=== PATIENT | female | born 1985 | race African-American/Black ===

== ENCOUNTER 2019-10-13 10:08 | Inpatient (IN) | payer OTHER ==
[2019-10-13 10:59] VITALS: BMI 43.1
--- NOTE | 2019-10-13 11:43 | HP ---
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: Alzheimer's, CVA, Dementia, Migraine, Multiple Sclerosis, Peripheral Neuropathy, Parkinson's, Seizure, Syncope, TIA, Vertigo, Other Cardiovascular: No: AFIB, Aneurysm, Aortic Insufficiency, Aortic Stenosis, CAD, CHF, Deep Vein Thrombosis, HTN, Hyperlipdemia, DC, Mitral Insufficiency, Mitral Stenosis, Murmur, Pulmonary Hypertension, Other Pulmonary: No: Asthma, Bronchitis, Cancer, COPD, O2 Dependent, Pneumonia, Previously Intubated, Pulmonary Embolus, Pulmonary Fibrosis, Sleep Apnea, Other Gastrointestinal: No: Ascites, Cancer, Constipation, Crohn's Disease, Diverticulitis, Diverticulosis, Esophageal Varices, Gastritis, GERD, GI Bleed, Hemorrhoids, Hiatal Hernia, Inflamatory Bowel Disease, Irritable Bowel Disease, Pancreatitis, Peptic Ulcer Disease, Ulcerative Colitis, Other Hepatobiliary: No: Cirrhosis, Cholelithiasis, Cholecystitis, Choledocholithi asis, Hepatitis A, Hepatitis B, Hepatitis C, Other Renal/: No: Renal Failure, Renal Inusuff, BPH, Cancer, Hematuria, Hemodialysis, Neurogenic Bladder, Renal Calculi, UTI, Other Reproductive: No: Ectopic , Endometriosis, Fibroids, PID, Polycystic Ovary Syndrome, Postmenopausal, Other ...: 1 ...Para: 0 ...Term: 0 ...: 0 ...Spon : 0 ...Induced : 0 ...Living Children: 0 ...Multiple Gestation: 0 ...EDC by Sono: 10/16/19 Heme/Onc: No: Anemia, B12 Deficiency, Bleeding Disorder, Cancer, Current Chemotherapy, Current Radiation Therapy, Hemochromatosis, Hypercoaguable State, Myeloproliferative Synd, Sickle Cell Disease, Sickle Cell Trait, Thrombocytopenia, Other Infectious Disease: No: AIDS, C-Diff, Herpes Zoster, HIV, MRSA, STD's, Tuberculosis, VREF, Other Psych: No: Addictions, Anxiety, Bipolar, Depression, Panic, Psychosis, Schizophrenia, Other Musculoskeletal: No: Bursitis, Chronic low back pain, Hemiparesis, Hemiplegia, Osteoarthritis, Paraplegia, Other Rheumatology: No: Fibromyalgia, Gout, Lupus, Rheumatoid Arthritis, Sarcoidosis, Vasculitis, Other ENT: No: Allergic Rhinitis, Sinusitis, Other Endocrine: No: [place]'s Disease, [place]'s Disease, Diabetes Insipidus, Diabetes Mellitus, Hyperparathyroidism, Hyperthyroidism, Hypothyroidism, Osteopenia, SIADH, Other Dermatology: No: Basal Cell, Cellulitis, Eczema, Melanoma, Psoriasis, Squamous Cell, Other - Past Surgical History Past Surgical History: No: None, AAA Repair, AICD, Amputation, Appendectomy, Arthrosocopy, AV Fistula/Graft, Bariatric Surgery, Breast Biopsy, Bypass, CABG, Carotid Endarterectomy, Cataract Removal, Cholecystectomy, Colectomy, Colonoscopy, Colostomy, Craniotomy, , Cystectomy, Hernia Repair, Hysterectomy, Ileal Conduit, Ileosotomy, Joint Replacement, Kidney Transplant, Laminectomy, Liver Transplant, Mastectomy, Nephrectomy, Oopherectomy, Orc hiectomy, Permanent Pacemaker, Prostatectomy, Splenectomy, Stent, Thoracotomy, TURP, Tonsillectomy, Tubal Ligation, Upper Endoscopy, Valve Replacement, Vasectomy, Vein Stripping/Ligation Hx Myomectomy: No Hx Transabdominal Cerclage: No - Smoking History Smoking history: Never smoked Have you smoked in the past 12 months: No - Alcohol/Substance Use Hx Alcohol Use: No Home Medications - Allergies Allergies/Adverse Reactions: Allergies Allergy/AdvReac Type Severity Reaction Status Date / Time No Known Allergies Allergy Verified 10/13/19 10:59 - Home Medications Home Medications: Ambulatory Orders Tablet 1 tab PO DAILY 10/13/19 Family Medical History Family History: Unremarkable Review of Systems - Review of Systems Constitutional: reports: No Symptoms Eyes: reports: No Symptoms HENT: reports: No Symptoms Neck: reports: No Symptoms Cardiovascular: reports: No Symptoms Respiratory: reports: No Symptoms Gastrointestinal: reports: No Symptoms Genitourinary: reports: No Symptoms Breasts: reports: No Symptoms Reported Musculoskeletal: reports: No Symptoms Integumentary: reports: No Symptoms Neurological: reports: No Symptoms Endocrine: reports: No Symptoms Hematology/Lymphatic: reports: No Symptoms Psychiatric: reports: No Symptoms Physical Exam - Maternity Vital Signs: Vital Signs Temperature 98.6 F 10/13/19 10:08 Pulse Rate 73 10/13/19 10:08 Respiratory Rate 18 10/13/19 10:08 Blood Pressure 128/79 10/13/19 10:08 O2 Sat by Pulse Oximetry (%) Constitutional: Yes: Well Nourished, No Distress, Calm Eyes: Yes: WNL, Conjunctiva Clear, EOM Intact HENT: Yes: WNL, Atraumatic, Normocephalic Neck: Yes: WNL, Supple, Trachea Midline Cardiovascular: Yes: WNL, Regular Rate and Rhythm Breast(s): Yes: WNL - Abdominal Exam/OB Fundal Height: 42 Number of Fetuses: Single Presentation: Oblique Contractions: No Category: I Accelerations: Uniform Decelerations: None - Vaginal Exam/OB Dilatation (cm): 0 Amniotic Membrane Status: Intact Presentation: Vertex/Position Station: -4 - Physical Exam Musculoskeletal: Yes: WNL Extremities: Yes: WNL Integumentary: Yes: WNL ...Motor Strength: WNL Psychiatric: Yes: WNL Problem List - Problems (1) with 39 completed weeks gestation Code(s): Z3A.39 - 39 WEEKS GESTATION OF (2) Oblique lie Code(s): O32.2XX0 - MATERNAL CARE FOR TRANSVERSE AND OBLIQUE LIE, UNSP (3) Macrosomia affecting management of mother Code(s): O36.60X0 - MATERNAL CARE FOR EXCESS GROWTH, UNSP TRIMESTER, UNSP Assessment/Plan FOR ELECTIVE C/SECTION FULLY DISCUSSED. PT. UNDERSTANDS AND CONSENTS
[2019-10-13] MEDS ORDERED: CITRIC ACID/SODIUM CITRATE 30 ML UNIT-DOSE CUP PO ONE (11:45)
[2019-10-13] MEDS ORDERED: morphine SULFATE/PF 0.5 MG/ML (2cc Syringe - QUVA) ONE (12:27)
[2019-10-13] MEDS ORDERED: IBUPROFEN 600 MG TABLET (FP) PO PRN (13:34)
[2019-10-13] MEDS ORDERED: ACETAMINOPHEN 325 MG TABLET (FP) PO PRN (13:34)
[2019-10-13] MEDS ORDERED: METHYLERGONOVINE MALEATE 0.2 MG/1 ML AMP IM PRN (13:34)
[2019-10-13] MEDS ORDERED: IBUPROFEN 800 MG/8 ML IJ IVPB PRN (13:34)
[2019-10-13] MEDS ORDERED: OXYTOCIN 20 UNITS in 0.9% NS 1000 ML INFUS.BAG IV ONE (13:44)
[2019-10-13] MEDS ORDERED: ELECTROLYTE-148 SOLN 1,000 ML IV SCH (13:45)
[2019-10-13] MEDS ORDERED: ONDANSETRON 4 MG/2 ML VIAL IVPUSH PRN (13:47)
--- NOTE | 2019-10-13 13:51 | OP ---
Operative Note - Note: Operative Date: 10/13/19 Pre-Operative Diagnosis: 39 weeks gestation Operation: Section Post-Operative Diagnosis: Same as Pre-op Surgeon: Ricky Allen Rockboard Lather: Vernon Jaeger Anesthesiologist/BEHAVIORAL GENETICIST: Bernardo Hawk Anesthesia: Spinal Estimated Blood Loss (mls): 650 Operative Report Dictated: Yes
--- NOTE | 2019-10-13 13:52 | SURG ---
Surgery Rn Trauma Note Rn Trauma: Vernon Jaeger PA-C Date of Service: 10/13/19 Diagnosis: 39 weeks gestation, requesting section Procedure: section I was present for the entirety of the operative procedure. For further detail, please refer to operative report. Visit type - Case Type Case Type: Scheduled - New patient This patient is new to me today: Yes Date on this admission: 10/13/19
[2019-10-13] MEDS ORDERED: ACETAMINOPHEN INJECTION 100 ML IVPB ONE (14:12)
[2019-10-13] MEDS: ACETAMINOPHEN 1000 MG/100 ML VIAL (NON FORMULARY) IVPB PRN ×2 (14:15→22:53)
[2019-10-13] MEDS ORDERED: OXYTOCIN 20 UNITS in 0.9% NS 20 UNIT/1,000 ML INFUS.BAG IV ONE (15:41)
[2019-10-13] MEDS: CEFAZOLIN 1 GM/D5W 1 GM/50 ML BAG IVPB SCH (17:22)
[2019-10-14] MEDS: CEFAZOLIN 1 GM/D5W 1 GM/50 ML BAG IVPB SCH ×2 (02:40→09:49)
--- NOTE | 2019-10-14 05:40 | PN ---
Progress Note (short form) - Note Progress Note: POD # 1. VSS. Stable. No voiding. Bladder scan - 70 cc. Po2 - 98%. Frustrated with nursing difficulties. Discussed. Reassured. PE: OK. Wound clean and dry. Dressing changed. Uterus firm Locchia rubra, moderate. OOB! Fluids PO. Cont. nursing. Problem List - Problems (1) with 39 completed weeks gestation Code(s): Z3A.39 - 39 WEEKS GESTATION OF (2) Oblique lie Code(s): O32.2XX0 - MATERNAL CARE FOR TRANSVERSE AND OBLIQUE LIE, UNSP (3) Macrosomia affecting management of mother Code(s): O36.60X0 - MATERNAL CARE FOR EXCESS GROWTH, UNSP TRIMESTER, UNSP
[2019-10-14 09:07] LABS: BASO % 0.1 % (0-2.0); EOS % 0.4 % (0-4.5); HEMATOCRIT 33.9 % (32.4-45.2); HEMOGLOBIN 11.3 GM/dL (10.7-15.3); LYMPH % 5.5 % (8-40); MCH 24.8 pg (25.7-33.7); MCHC 33.3 g/dl (32.0-36.0); MEAN CELL VOLUME 74.6 fl (80-96); MEAN PLT VOLUME 10.6 fl (7.5-11.1); MONO % 7.4 % (3.8-10.2); NEUT % 86.6 % (42.8-82.8); PLATELET COUNT 155 K/MM3 (134-434); RBC 4.54 M/mm3 (3.60-5.2); RDW 21.5 % (11.6-15.6); WHITE BLOOD COUNT 10.6 K/mm3 (4.0-10.0)
[2019-10-14] MEDS: SIMETHICONE 80 MG TAB.CHEW (FP) PO PRN ×3 (09:45→20:20)
[2019-10-14] MEDS: oxyCODONE HCL 5 MG TABLET PO PRN ×2 (09:45→20:20)
[2019-10-14] MEDS: IBUPROFEN 600 MG TABLET (FP) PO PRN ×2 (09:46→15:57)
--- NOTE | 2019-10-14 10:20 | PN ---
HC Provider Note Provider Note: Anesthesia Post Op Note Pt s/p spinal for c/section Pt awake alert denies h/a, n/v Ambulating well no urinary retention VSS no apperent anesthesia complications Jared Ramon.
[2019-10-14 10:44] LABS: ANISOCYTOSIS 3+; MACROCYTOSIS 0; OVALOCYTE 1+; PLATELET ESTIMATE DECREASED; TEAR DROP CELLS 1+
[2019-10-14] MEDS ORDERED: BISACODYL 10 MG SUPP.RECT RC PRN (13:58)
[2019-10-14] MEDS: ACETAMINOPHEN 325 MG TABLET (FP) PO PRN (15:58)
--- NOTE | 2019-10-14 20:05 | OP ---
DATE OF OPERATION: DATE OF DICTATION: 10/13/2019 PREOPERATIVE DIAGNOSIS: 1. Intrauterine at term. Oblique lie. 2. Suspected macrosomia. POSTOPERATIVE DIAGNOSIS: 1. Intrauterine at term. Oblique lie. 2. No macrosomia. ADDITIONAL DIAGNOSIS: Morbid obesity. PROCEDURE: Low segment transverse primary section. SURGEON: Sonia Dominguez MD. ANESTHESIOLOGIST: [place] Saavedra MD. ANESTHESIA: Spinal. INTERNET TECHNOLOGY MANAGER: MIKE Taveras. PROCEDURE AND FINDINGS: Under excellent spinal block, in dorsal supine position with left lateral tilt, patient was prepped and draped in a usual fashion. Incision was performed in Pfannenstiel fashion and extended transversely through subcutaneous tissue and fascia. Rectus muscles were dissected off the fascia, and peritoneal cavity was entered at superior aspect of incision and extended vertically. Term uterus with normal adnexa was noted. Baby's head was seen bulging off the pelvis directly to the left iliac fossa. Bladder flap was incised and peeled off the lower uterine segment, and hysterotomy was performed in transverse fashion. It was extended laterally with bandage scissors. Clear amniotic fluid was noted. Baby's head was then directed into the inlet and delivered through the hysterotomy with fundal pressure. It was a boy, and it cried and breathed spontaneously and was given Apgars 9 and 9. Cord was divided with delay. Baby was handed to the senior investment analyst, Dr. Almaraz. Placenta was removed manually, and uterine cavity was cleaned. Also was dilated with ring forceps. Hysterotomy was closed with continuous running Biosyn interlocking suture. Single bleeding spot was secured with same Biosyn mattress suture. Uterus was placed in the abdomen physiologically. Lavage was carried out. Hemostasis was meticulously attended to. This patient was showing propensity to bleeding throughout the whole case. Piece of Surgicel was placed alongside incision under the bladder flap. Sponge, needle, instrument count was reported as correct. Peritoneum was closed with continuous running Biosyn 2-0 suture. Fascia was closed with continuous running Vicryl 1 suture. Subcutaneous tissue was approximated with interrupted Biosyn sutures and skin was closed in subcuticular continuous running Biosyn 3-0 suture. Steri-Strips were applied. Dressing was placed on the incision and held with binder. Urine was clear in the Carmen catheter bag. Total blood loss was 650 mL. Patient was transferred to the PACU comfortable and stable. SONIA DOMINGUEZ MD [id number] MTDD
[2019-10-15] MEDS: oxyCODONE HCL 5 MG TABLET PO PRN (03:29)
--- NOTE | 2019-10-15 08:15 | PN ---
Progress Note (short form) - Note Progress Note: Surgery: Pt without complaints today. OOB to chair with the baby, states that nursng is doing ok. No flatus or BM, appetite ok, no nausea. No CP or SOB. Vaginal bleeding decreasing/minimal. Vital Signs Period Temp Pulse Resp BP Sys/Magallanes Pulse Ox Last 24 Hr 98.0 F-99.4 F 98-103 18-20 118-132/81-85 97 GEN: A&0x3, NAD ABD: abd binder in place. inc c/d/i soft, non-disteded, inc tenderness CBC, BMP 10/14/19 07:55 A/p: 34 yo female s/p C section, POD#2 Diet as tolerated OOB and ambulate Incentive spirometer oral pain medications with tylenol/motrin/oxycodone as needed stool softner D/w Dr. Allen
[2019-10-15] MEDS: IBUPROFEN 600 MG TABLET (FP) PO PRN ×2 (10:40→20:05)
[2019-10-15] MEDS: SIMETHICONE 80 MG TAB.CHEW (FP) PO PRN ×2 (10:40→20:04)
[2019-10-15] MEDS: ACETAMINOPHEN 325 MG TABLET (FP) PO PRN (10:41)
--- NOTE | 2019-10-16 07:06 | PN ---
Progress Note (short form) - Note Progress Note: Feels great. Happy. BM - yes. PE is OK. Incision clean and dry. No CVA, extremities T. Lochia small. Breasts soft. Instructions given. Discharge. Problem List - Problems (1) with 39 completed weeks gestation Code(s): Z3A.39 - 39 WEEKS GESTATION OF (2) Oblique lie Code(s): O32.2XX0 - MATERNAL CARE FOR TRANSVERSE AND OBLIQUE LIE, UNSP (3) Macrosomia affecting management of mother Code(s): O36.60X0 - MATERNAL CARE FOR EXCESS GROWTH, UNSP TRIMESTER, UNSP
--- NOTE | 2019-10-16 07:12 | DS ---
"Physical Exam-MATERIAL YARD CLERK Vital Signs: Vital Signs Temperature 99 F 10/15/19 22:00 Pulse Rate 109 H 10/15/19 22:00 Respiratory Rate 18 10/15/19 22:00 Blood Pressure 137/83 10/15/19 22:00 O2 Sat by Pulse Oximetry (%) 97 10/14/19 21:00 Constitutional: Yes: Well Nourished, No Distress, Calm Eyes: Yes: WNL, Conjunctiva Clear, EOM Intact HENT: Yes: WNL, Atraumatic, Normocephalic Neck: Yes: WNL, Supple, Trachea Midline Cardiovascular: Yes: WNL, Regular Rate and Rhythm Respiratory: Yes: WNL, Regular, CTA Bilaterally Gastrointestinal: Yes: WNL ...Rectal Exam: Yes: WNL Renal/: Yes: WNL External Genitalia: Yes: Normal Breast(s): Yes: WNL Musculoskeletal: Yes: WNL Extremities: Yes: WNL Integumentary: Yes: WNL Neurological: Yes: WNL, Alert, Oriented ...Motor Strength: WNL Psychiatric: Yes: WNL, Alert, Oriented Labs: CBC, BMP 10/14/19 07:55 Delivery - Delivery Section: Primary, Low Flap Transverse Type of Anesthesia: Spinal Delivery, Single - Stages of Labor Date of Delivery: 10/13/19 Time of Delivery: 13:03 - Condition of Infant 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 Remarks - Remarks Remarks: Good recovery. Discharge. Discharge Summary Problems reviewed: Yes Reason For Visit: SECTION Current Active Problems Macrosomia affecting management of mother (Acute) Oblique lie (Acute) with 39 completed weeks gestation (Acute) Hospital Course: Uneventful recovery. Health Concerns: Obesity. Loop in place. Condition: Good - Instructions Diet, Activity, Other Instructions: Discharge Instructions: Wound care You have steri-strips over your incision. Leave these in place. They will peel off in the next 7 to 10 days. Do peel them off in 10 days. You may shower af ter surgery. If there are tapes present on the skin, they can get wet. When showering, allow soap and water to run over the incision, do not scrub the incision. Pat dry well after showering. You may continue to use the abdominal binder for comfort. When coughing, sneezing or getting up it is helpful to hold a pillow against the incision for comfort. Diet There are no dietary restrictions. Eat healthy, high-fiber foods. Drink 6 to 8 glasses of liquid each day. This will assist in keeping your bowels are regular. You may want to take an over the counter stool softener such as DulcoEase as constipation is a common side effect of narcotic pain medications. Activity: No heavy lifting, exercise or strenuous activity until cleared by your doctor. Do not lift anything heavier than the baby until otherwise cleared by your doctor. Dont try to take care of anyone other than the baby and yourself. Get lots of rest, take naps in throughout the day. Increase your activity level bit by bit. We recommend postsurgical breathing and coughing exercises to help keep your lungs clear. You may take the incentive spirometer home with you and contin ue using it. Do not drive until cleared by your doctor. No sexual activity until cleared by your doctor. The best exercise is walking. Small amounts done frequently are best. It is best to stay mobile to avoid development of blood clots in your legs. Medications: Pain management You may take Tylenol (Acetaminophen) or Ibuprofen (for example, Motrin, Advil etc) for mild pain. Any pain prescription medication ordered should be taken as prescribed for moderate to severe pain. Please take as directed. If the prescribed dosage is not controlling your pain, please contact Dr Allen. Do not drive, drink alcohol or operate heavy machinery while taking narcotic pain medications. You may Acetaminophen and Ibuprofen alternating. For example, you can take Acetaminophen at 10AM followed by Ibuprofen at 1pm, followed by Acetaminophen again at 4pm. We recommend keeping track of the dosage and time you take each to ensure you do not exceed the ware cleaner's recommended daily dosage. Take Ibuprofen with food, Acetaminophen may be taken on an empty stomach. Do not exceed 3g (3000mg) of Acetaminophen in 24 hours. Do not exceed 2400mg Ibuprofen in 24 hours. [facility] The Drug Utilization Report below displays all of the controlled substance prescriptions, if any, that your patient has filled in the last twelve months. The information displayed on this report is compiled from pharmacy submissions to the Department, and accurately reflects the information as submitted by the pharmacies. This report was requested by: Vernon Jaeger | Reference #: [id number] Follow up: Please call the office for a follow up appointment in Call your doctor immediately if you have: Fever of 100.4F (38C) or higher Redness, pain, or drainage at your incision site Bleeding that requires a new sanitary pad every hour Severe pain in the abdomen Pain or urgency with urination Foul odor from vaginal discharge Trouble urinating or emptying your bladder No bowel movement within 1 week after the of your baby Swollen, red, painful area in the leg Appearance of rash or hives Sore, red, painful area on the breasts that may come with flu-like symptoms Feelings of anxiety, panic, and/or depression This report was requested by: Padma Verma | Reference #: [id number] Disposition: HOME - Home Medications Comprehensive Discharge Medication List: Ambulatory Orders Tablet 1 tab PO DAILY 10/13/19 Oxycodone HCl 5 mg PO Q6H PRN #10 tablet MDD 4 10/15/19"
[2019-10-16 08:34] LABS: BASO % 0.2 % (0-2.0); EOS % 0.8 % (0-4.5); HEMATOCRIT 27.9 % (32.4-45.2); HEMOGLOBIN 9.4 GM/dL (10.7-15.3); LYMPH % 14.4 % (8-40); MCH 25.2 pg (25.7-33.7); MCHC 33.8 g/dl (32.0-36.0); MEAN CELL VOLUME 74.5 fl (80-96); MEAN PLT VOLUME 10.4 fl (7.5-11.1); MONO % 10.5 % (3.8-10.2); NEUT % 74.1 % (42.8-82.8); PLATELET COUNT 169 K/MM3 (134-434); RBC 3.74 M/mm3 (3.60-5.2); RDW 21.2 % (11.6-15.6)
[2019-10-16 11:48] VITALS: BP 130/81; PULSE 98; TEMP 98.2
--- NOTE | 2019-10-19 15:12 | PATH ---
Surgical Pathology Report Patient Name: MAVERICK ROBERSON [facility]. Rec. #: [id number] /Age/Gender: 1985 (Age: 34) / F Account: [id number] Location: [facility] OBS/PACKING CHECKER Taken: 10/13/2019 Received: 10/14/2019 Reported: 10/19/2019 Physicians: Ricky Allen MD Specimen(s) Received PLACENTA Clinical History at 39.4 weeks primary Final Diagnosis PLACENTA: THIRD TRIMESTER PLACENTA WITH FOCAL INTRAPARENCHYMAL HEMORRHAGE (1.7 CM IN GREATEST DIMENSION). TRIVASCULAR CORD. MEMBRANES WITH NO DIAGNOSTIC ABNORMALITIES. Electronically Signed Natalee Figueroa M.D. Gross Description The specimen is received fresh labeled placenta and is a 521 gram, 17.0 x 14.5 x 3.4 cm. placenta with attached membranes and umbilical cord. The attached membranes are zavaleta, translucent with focal opacities and insert marginally. The umbilical cord measures 26 cm. in length and averages 1.3 cm. in diameter. The cord inserts at the margin. No true knots or strictures are identified. Cut surface of the umbilical cord reveals 3 vessels. The surface is barillas-blue with minimal fibrin deposition and appropriate caliber vessels. The maternal surface is red-brown with focal defects. Sectioning reveals a 1.7 cm greatest dimension hemorrhagic intraparenchymal lesion. The remaining placental parenchyma is red-brown and spongy. Fish Fryer sections are submitted in three cassettes as follows: 1-membrane roll and umbilical cord; 2-lesion; 8-wopl-pggtoifso section of placenta. /10/15/2019 [facility]
== END 2019-10-16 11:30 | disposition home or self-care (01) | DRG 540 ==
LOC: JLDR 10:08 → J3W 16:33
PROVIDERS: ADMIT Specialist; ATTEND Specialist
PROC: 10D00Z1 Extraction of Products of Conception, Low, Open Approach (ICD-10-PCS; principal; 2019-10-13)
DX: O32.2XX0 Maternal care for transverse and oblique lie, not applicable or unspecified (principal); O99.214 Obesity complicating childbirth; Z3A.39 39 weeks gestation of pregnancy; Z37.0 Single live birth
CPT/HCPCS: 36415; 85025; 88307-TC; J0131